=== PATIENT | female | born 1935 | race Caucasian/White ===

== ENCOUNTER → 2017-05-22 | Outpatient (CLI) | payer MEDICARE ==
[~2017-05-22] MED LIST: ASPIRIN 81MG TA81 MG PO; DIGOXIN0.25 MG PO; LOPID 600MG TA600 MG PO; MECLIZINE 25MG25 MG PO; METFORMIN500 MG PO; METOPROLOL25 MG PO
--- NOTE | 2017-05-22 11:19 | RADIOLOGY REPORT PS360 ---
BONE DENSITOMETRY(HIP:LT SPINE HISTORY: POST MENOPAUSE ORDERING PHYSICIAN: Kady MEDINA PATIENT AGE: 82 years COMPARISON: None FINDINGS: The BMD measured at the L1-L4 is 0.886 g percent meters squared with a T score of -2.5 consistent with osteoporosis with high fracture risk. Treatment should be initiated if not already started. Recommend follow-up exam April 2018. The mean bone density of the hips as a T score of -2.3. IMPRESSION: Osteoporosis.
--- NOTE | 2017-05-26 08:00 | RADIOLOGY REPORT PS360 ---
DIG MAMM-SCREEN NAILA W/CAD ORDERING PHYSICIAN : Kady MEDINA PATIENT AGE: 82 years GENDER: Female COMPARISON: January 2011, February 2012, 2012, 2013, March 2015, 2015. HISTORY:52-year-old with no hormones no new complaints noncontributory family history TECHNIQUE: Std CC & MLO images were obtained. R2 CAD reviewed. FINDINGS: Mild to moderate residual fibroglandular elements both breasts. RIGHT BREAST: Stable appearing right breast. No areas concern. LEFT BREAST:. No significant new findings. Subtle area of relative density at the inferior and medial left breast is similar to studies from 2011 2010. Density inferior left IMPRESSION: . No significant new areas of concern. Mild/moderate residual fibroglandular elements throughout both breast-warrant ongoing follow-up. BI-RADS CATEGORY: 2_Benign RECOMMENDED FOLLOWUP: 12M 12 MONTH FOLLOW-UP (A letter has been sent to the patient regarding results of the study.)
== END ==
LOC: RAD 09:48
DX: Z12.31 Encounter for screening mammogram for malignant neoplasm of breast (principal); Z78.0 Asymptomatic menopausal state; Z13.820 Encounter for screening for osteoporosis
CPT/HCPCS: G0202

== ENCOUNTER → 2017-06-05 | Outpatient (CLI) | payer MEDICARE ==
--- NOTE | 2017-06-05 09:40 | RADIOLOGY REPORT PS360 ---
CT HEAD W/O CONTRAST HISTORY: Short-term memory loss MEMORY LOSS, SHORT TERM ORDERING PHYSICIAN: Kady MEDINA PATIENT AGE: 82 years COMPARISON: 08/27/2013 TECHNIQUE: Axial images obtained without contrast. Brain and bone windows reviewed. FINDINGS: No midline shift, mass effect, intracranial hemorrhage, hydrocephalus, or extra-axial fluid collection is evident. There is mild generalized brain volume loss and mild periventricular ischemic gliotic changes The calvarium has an unremarkable appearance. No mastoid effusion. The visualized paranasal sinuses are unremarkable. IMPRESSION: No acute finding. Involutional changes of age.
== END ==
LOC: RAD 07:33
DX: R41.3 Other amnesia (principal)